=== PATIENT | female | born 1960 | race Caucasian/White ===

== ENCOUNTER 2017-07-22 18:06 | Emergency (ER) | payer OTHER, BC ==
[2017-07-22 18:18] VITALS: BP 135/93
[2017-07-22] MEDS ORDERED: HYDROcod/ACETAM 5/325 MG TABLET PO STA (19:21)
--- NOTE | 2017-07-22 19:25 | ED Physician Documentation ---
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 There is no numbness or tingling in the arms or legs and no loss of bowel or bladder control. No fevers. No history of back problems.) Review of Systems Constitutional: reports: Reviewed and negative Cardiac: reports: Reviewed and negative Respiratory: reports: Reviewed and negative PD PAST MEDICAL HISTORY - Past Medical History Past Medical History: Yes HEENT: Glaucoma - Past Surgical History Past Surgical History: Yes General: Cholecystectomy - Present Medications Home Medications: Ambulatory Orders Medication Instructions Recorded Confirmed Travoprost [Travatan Z] 1 drop EACHEYE QPM 02/04/15 07/22/17 Brinzolamide 1% Ophth Drops [Azopt 1 drops TOP BID 07/22/17 07/22/17 1% Ophth Drops] Cyclobenzaprine [Flexeril] 10 mg PO TID PRN #7 tablet 07/22/17 HYDROcod/ACETAM 5/325 [[place] 5/325] 1 - 2 ea PO Q6H PRN #7 tablet 07/22/17 Omeprazole [PriLOSEC] 20 mg PO DAILY #14 capsule 07/22/17 - Allergies Allergies/Adverse Reactions: Allergies Allergy/AdvReac Type Severity Reaction Status Date / Time peanut Allergy Hives Verified 07/22/17 18:27 Penicillins Allergy Hives Verified 07/22/17 18:27 Sulfa (Sulfonamide Allergy Hives Verified 07/22/17 18:27 Antibiotics) - Social History Does the pt smoke?: No Smoking Status: Never smoker Does the pt drink ETOH?: Yes Does the pt have substance abuse?: No - Immunizations Immunizations are current?: Yes Immunizations: TDAP current <10years PD ED PE NORMAL - Vitals Vital signs reviewed: Yes - General General: Alert and oriented X 3, No acute distress - Back Back: No CVA TTP, No spinal TTP - Extremities Extremities: Other (The patient has equal and normal Achilles and patellar reflexes bilaterally. Normal sensation in all areas of the legs. Patient denies saddle anesthesia. Normal strength in flexion-extension at the ankles, knees, and flexion of the hips.) - Neuro Neuro: Alert and oriented X 3, Normal speech - Psych Psych: Normal mood, Normal affect Results - Vitals Vitals: Vital Signs - 24 hr 07/22/17 18:14 Temperature 36.3 C L Heart Rate 75 Respiratory 18 Rate Blood Pressure 135/93 H O2 Saturation 96 Oxygen O2 Source Room air PD MEDICAL DECISION MAKING - ED course ED course: This patient has seemingly uncomplicated musculoskeletal back pain. The patient has no "red flags." Specifically denies IV drug use, fevers, incontinence, saddle anesthesia. Spinal epidural abscess was considered, given that the patient has no fever, is not diabetic, has no spinal tenderness, does not use IV drugs, and has no bilateral neurologic symptoms, the diagnosis of spinal epidural abscess is considered exceedingly unlikely. Departure - Departure Disposition: Home, Self Care Clinical Impression: Back pain Qualifiers: Back pain location: low back pain Chronicity: acute Back pain laterality: bilateral Sciatica presence: without sciatica Qualified Code(s): M54.5 - Low back pain Condition: Good Record reviewed to determine appropriate education?: Yes Instructions: ED Neck Back Pain General Prescriptions: Cyclobenzaprine [Flexeril] 10 mg PO TID PRN #7 tablet PRN Reason: Pain HYDROcod/ACETAM 5/325 [[place] 5/325] 1 - 2 ea PO Q6H PRN #7 tablet PRN Reason: Pain Omeprazole [PriLOSEC] 20 mg PO DAILY #14 capsule Comments: Call your doctor to arrange a follow-up appointment, make the next available appointment. In the interim, return anytime if worse or if new symptoms develop. Your blood pressure was elevated today on check into the emergency department. This does not mean that you have hypertension, it is a common phenomenon to come to the emergency department and have elevated blood pressure. I recommend that she see your primary care physician within the week to have it rechecked when you are feeling better. Forms: Activity restrictions
[2017-07-22] MEDS ORDERED: HYDROcod/ACETAM 5/325 MG TABLET ONE (19:37)
== END 2017-07-22 19:42 | disposition home or self-care (01) ==
LOC: ED 18:06
DX: M54.9 Dorsalgia, unspecified (principal); R03.0 Elevated blood-pressure reading, without diagnosis of hypertension
CPT/HCPCS: 99283; A9270

== ENCOUNTER 2019-02-14 16:52 | Emergency (ER) | payer BC ==
[2019-02-14 16:59] VITALS: BP 148/90
[2019-02-14] MEDS ORDERED: TETANUS/DIPHTHERIA/PERTUSSIS 0.5 ML SYRINGE IM ONE (17:28)
--- NOTE | 2019-02-14 17:34 | ED Physician Documentation ---
PD HPI UPPER EXT INJURY - Stated complaint Stated Complaint: L PINKY LAC - Chief complaint Chief Complaint: Laceration - History obtained from History obtained from: Patient - History of Present Illness Location: Left (Right-handed woman with borderline tetanus immunization cut the tip of her left pinky with a knife at home just prior to arrival.) Review of Systems Constitutional: reports: Reviewed and negative Throat: reports: Reviewed and negative Cardiac: reports: Reviewed and negative PD PAST MEDICAL HISTORY - Past Medical History Past Medical History: Yes HEENT: Glaucoma - Past Surgical History Past Surgical History: Yes General: Cholecystectomy - Present Medications Home Medications: Ambulatory Orders Medication Instructions Recorded Confirmed Travoprost [Travatan Z] 1 drop EACHEYE QPM 02/04/15 07/22/17 Brinzolamide 1% Ophth Drops [Azopt 1 drops TOP BID 07/22/17 07/22/17 1% Ophth Drops] Cyclobenzaprine [Flexeril] 10 mg PO TID PRN #7 tablet 07/22/17 HYDROcod/ACETAM 5/325 [[place] 5/325] 1 - 2 ea PO Q6H PRN #7 tablet 07/22/17 Omeprazole [PriLOSEC] 20 mg PO DAILY #14 capsule 07/22/17 - Allergies Allergies/Adverse Reactions: Allergies Allergy/AdvReac Type Severity Reaction Status Date / Time peanut Allergy Hives Verified 02/14/19 16:58 Penicillins Allergy Hives Verified 02/14/19 16:58 Sulfa (Sulfonamide Allergy Hives Verified 02/14/19 16:58 Antibiotics) - Social History Does the pt smoke?: No Smoking Status: Never smoker Does the pt drink ETOH?: Yes Does the pt have substance abuse?: No - Immunizations Immunizations are current?: Yes Immunizations: TDAP current <10years PD ED PE NORMAL - Vitals Vital signs reviewed: Yes - General General: Alert and oriented X 3, No acute distress - Extremities Extremities: Other (On the pulp of the left pinky there is about 6 mm shallow laceration) - Neuro Neuro: Alert and oriented X 3, Normal speech Results - Vitals Vitals: Vital Signs - 24 hr 02/14/19 16:56 Temperature 36 C L Heart Rate 81 Respiratory 18 Rate Blood Pressure 148/90 H O2 Saturation 98 Oxygen O2 Source Room air Procedures - Laceration (location) Left fifth finger Length in cm: 0.5 Wound type: Superficial Wound Preparation: Irrigated copiously NS Skin layer closure: Dermabond, Steri strips Other: Tetanus booster given Complexity: Simple Departure - Departure Disposition: 01 Home, Self Care Clinical Impression: Laceration Condition: Good Record reviewed to determine appropriate education?: Yes Instructions: ED Laceration Ext Skin Glue Comments: Your blood pressure was elevated today on check into the emergency department. This does not mean that you have hypertension, it is a common phenomenon to come to the emergency department and have elevated blood pressure. I recommend that you see your primary care physician within the week to have it rechecked when you are feeling better.
== END 2019-02-14 17:42 | disposition home or self-care (01) ==
LOC: ED 16:52
DX: S61.217A Laceration without foreign body of left little finger without damage to nail, initial encounter (principal); W26.0XXA Contact with knife, initial encounter; R03.0 Elevated blood-pressure reading, without diagnosis of hypertension
CPT/HCPCS: 12001; 90471; 99282; 99283

== ENCOUNTER 2022-02-25 08:00 | Outpatient (CLI) | payer BC ==
--- NOTE | 2022-02-25 17:17 | XRAY Report ---
PROCEDURE: Hand 3 View LT INDICATIONS: L THUMB PX TECHNIQUE: 3 views of the hand(s) acquired. COMPARISON: None FINDINGS: Bones: No fractures or dislocations. No suspicious bony lesions. Soft tissues: No suspicious soft tissue calcifications. IMPRESSION: No fracture. No osseous lesion. If symptoms and/or clinical concern for pathology persists, further a ssessment with repeat plain film radiographs (7-10 days) or advanced imaging (CT, MR, bone scan) shou ld be considered. Reviewed by: Jane Ocasio MD, PhD on 02/25/2022 5:15 PM PDT Approved by: Jane Ocasio MD, PhD on 02/25/2022 5:15 PM PDT Station ID: [id number]
== END 2022-02-25 23:59 | disposition home or self-care (01) ==
LOC: DI.N 08:00
PROVIDERS: ATTEND Registered Nurse
DX: M79.645 Pain in left finger(s) (principal)

== ENCOUNTER 2023-01-28 09:50 | Outpatient (CLI) | payer BC ==
[2023-01-28 10:34] VITALS: BP 118/72
--- NOTE | 2023-01-28 10:34 | SLEEP CARE CONSULTATION ---
Information from patient questionnaire entered by Eduar Garcia. I have reviewed and concur with the information entered by Eduar Garcia. This document represents the service I personally performed and the decisions made by me, Nolvia Clark ARNP. History of Present Illness Service Date and Time: 01/28/2023 0950 Reason for Visit: New patient Chief Complaint: reports: Snoring Date of Onset: VERY LONG TIME Usual bedtime: WHEN THE SUNSETS Time it takes to fall asleep: 1-2HRS Snores at night: Yes Observed to quit breathing while asleep: No Sleeps alone due to snoring: No Number of times waking at night: 1-3 Reasons for waking at night: reports: Gasping for air (only with seasonal allergies ), Bathroom, Other (NOISE, LETTING DOGS OUT). denies: Choking, Snoring Toss, Turn, or Twitch while sleeping: Yes Recalls having dreams: No Usually gets out of bed at: [id number] Feels refreshed in the morning: No Morning headache: No Sleepy or fatigued during the day: Yes (sometimes) Ever fallen asleep while driving: No Takes day naps: No Dreams during day naps: No Prior sleep studies: No Additional HPI information: I had the pleasure of seeing JULIA BROWN today regarding the possibility of her having a sleep disorder. Her current complaints are unrefreshed sleep and snoring. She saw her PCP, who wanted to put her on blood pressure medication but she did not want to start medication. They talked about her sleep and she was referred here. She states she snores but it is not every night according to her partner. She states she snores more when she is on her back. She does not always wake up feeling rested. 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 Patient is and lives in [place]. Have you smoked in the past 12 months: No Years of smokin Quit date: 1981 Alcohol use: Yes Alcohol amount and frequency: 1 GLASS PER MONTH Caffeine use: Yes Caffeine amount and frequency: 2 CUPS PER DAY Family History Family history of sleep disordered breathing: Yes Family Hx Sleep Apnea: Mother: Snoring, Father: Snoring, Sibling: Snoring Allergies and Home Medications Known drug allergies: Yes (as listed) Drug allergies reviewed: Yes Home medication list reviewed: Yes (updated list in EMR) Allergy and home medication list: Allergies peanut Allergy (Verified 01/27/23 13:12) Hives Penicillins Allergy (Verified 01/27/23 13:12) Hives Sulfa (Sulfonamide Antibiotics) Allergy (Verified 01/27/23 13:12) Hives Review of Systems Cardiovascular: denies: high blood pressure Gastrointestinal: denies: heartburn Neurological: denies: headaches Psychiatric: denies: anxiety, depression, mood disorder Ear/Nose/Throat: reports: nasal congestion, sinus problems, dry mouth/throat. denies: tonsillectomy Endocrine: denies: thyroid disease Immunologic: reports: sneezing, allergies to food or environment (peanuts, walnuts) Physical Exam Vital signs obtained and entered by: EDUAR Bishop MA Blood Pressure: 118/72 (LEFT ARM) Cuff size: regular Heart Rate: 74 O2 Saturation: 97 Height: 5 ft 6 in Weight: 190 lb Body Mass Index: 30.7 BMI Classification: Obese Neck circumference: 14.25 Mouth and throat: narrow oropharynx Soft palate: normal Hard palate: normal Uvula: normal Uvula visualization: 25% Mallampati Class III Tongue: enlarged in size with teeth bueno on lateral edges Tonsils: small Heart: regular rate and rhythm Lungs: clear bilaterally Impression and Plan 1. Suspected Obstructive Sleep Apnea-Hypopnea Syndrome, as suggested by a history of loud and irregular snoring and unrefreshed sleep. Narrow oropharynx and obesity are common predisposing factors for obstructive sleep apnea-hypopnea syndrome. I recommend proceeding to polysomnography to confirm the diagnosis and to assess severity. If the patient has significant sleep disordered breathing, a manual CPAP titration study will also be performed to find the optimal treatment pressure. I informed the patient of what the sleep studies involve and after some discussion, obtained agreement to proceed. The pathophysiology of obstructive sleep apnea-hypopnea syndrome was discussed with the patient and health risks of cardiovascular and cerebrovascular disease if not treated. 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 Patient agreed to plan. * Schedule polysomnography +- manual CPAP titration study and return in 1-2 weeks after the study to discuss result and initiate therapy. * Avoid long distance driving or driving when feeling sleepy. * Avoid alcohol, sedative and muscle relaxant around bedtime. * Attempt to lose weight. * Review instructions provided by trained office staff on how to prepare for the sleep study. * Return for follow-up after sleep study completed. Counseling Topics: Weight loss health impact Visit Type: In Office Time Spent with Patient (minutes): 30 Provider Statement: I spent 100% of the Face to Face Visit with the patient with greater than 50% spent counseling the patient and coordination of care.
== END 2023-01-28 09:51 | disposition home or self-care (01) ==
LOC: SC 09:50
PROVIDERS: ATTEND Nurse Practitioner Family
DX: G47.8 Other sleep disorders (principal); R06.83 Snoring; E66.9 Obesity, unspecified; Z68.30 Body mass index [BMI] 30.0-30.9, adult; Z87.891 Personal history of nicotine dependence
CPT/HCPCS: 99203; 99212

== ENCOUNTER 2023-03-16 10:27 | Outpatient (CLI) | payer BC | END 2023-03-16 10:28 | disposition home or self-care (01) | LOC: SC 10:27 | PROVIDERS: ATTEND Nurse Practitioner Family | DX: G47.33 Obstructive sleep apnea (adult) (pediatric) (principal); R09.02 Hypoxemia; E66.9 Obesity, unspecified; Z68.30 Body mass index [BMI] 30.0-30.9, adult | CPT/HCPCS: 95806 ==